=== PATIENT | female | born 1985 | race Caucasian/White ===

== ENCOUNTER 2017-07-14 15:24 | Emergency (ER) | payer BC, OTHER ==
[~2017-07-14] VITALS: Ht 160 cm; Wt 54.7 kg
[2017-07-14 15:27] VITALS: BP 114/80
[2017-07-14] MEDS ORDERED: SODIUM CHLORIDE FLUSH 10ML SYR IVF ONE (16:00)
[2017-07-14] MEDS ORDERED: LORazepam 2 MG/ML, 1ML IVPush ONE (16:00)
[2017-07-14] MEDS ORDERED: SODIUM CHLORIDE 0.9% 1,000ML IVBOLUS ONE (16:00)
[2017-07-14] MEDS ORDERED: LORazepam 2 MG/ML, 1ML ONE (16:15)
[2017-07-14 16:21] LABS: HEMATOCRIT 44.6 % (34.6-47.8); HEMOGLOBIN 15.1 g/dL (11.7-16.4); WHITE BLOOD COUNT 8.6 x10^3/uL (3.4-10)
[2017-07-14 16:24] LABS: ASPARTATE AMINO TRANSFERASE 14 U/L (15-37); BLOOD UREA NITROGEN 13 mg/dL (7-18)
[2017-07-14 17:24] LABS: PATH.CAST-FLAG NOT PRESENT; SPERM-FLAG NOT PRESENT; SRC-FLAG NOT PRESENT; XTAL-FLAG NOT PRESENT; YLC-FLAG NOT PRESENT
== END 2017-07-14 18:22 | disposition home or self-care (01) ==
LOC: ED 18:16
DX: K52.9 Noninfective gastroenteritis and colitis, unspecified (principal); E86.0 Dehydration; F41.1 Generalized anxiety disorder
CPT/HCPCS: 36415; 80053; 81001; 83690; 84703; 85025; 96361; 96374; 99284; J2060; J7030